=== PATIENT | female | born 1990 | race Caucasian/White ===

== ENCOUNTER 2022-04-22 09:35 | Inpatient (IN) | payer OTHER ==
[2022-04-22] MEDS: ELECTROLYTE-148 SOLN 1,000 ML IV SCH (10:00)
[2022-04-22 11:00] VITALS: BMI 32.4
[2022-04-22] MEDS ORDERED: ONDANSETRON 4 MG/2 ML VIAL IVPUSH PRN (11:59)
[2022-04-22] MEDS ORDERED: morphine SULFATE (PF) 1 MG/2 ML SYRINGE ONE (12:06)
[2022-04-22] MEDS ORDERED: FENTANYL CITRATE/PF 50 MCG/ML VIAL ONE (12:06)
[2022-04-22] MEDS ORDERED: PHENYLEPHRINE HCL 10 MG/1 ML SINGLE DOSE VIAL ONE (12:21)
[2022-04-22] MEDS ORDERED: ceFAZolin SODIUM 1 GM VIAL ONE (12:23)
[2022-04-22] MEDS ORDERED: ONDANSETRON 4 MG/2 ML VIAL ONE (12:31)
[2022-04-22] MEDS ORDERED: OXYTOCIN 10 UNITS/ML VIAL ONE (12:53)
[2022-04-22] MEDS ORDERED: CITRIC ACID/SODIUM CITRATE 30 ML UNIT-DOSE CUP PO ONE (13:28)
[2022-04-22] MEDS ORDERED: ACETAMINOPHEN 325 MG TABLET (FP) PO PRN (13:29)
[2022-04-22] MEDS ORDERED: METHYLERGONOVINE MALEATE 0.2 MG/1 ML AMP IM PRN (13:29)
[2022-04-22] MEDS ORDERED: SENNOSIDES/DOCUSATE COMBO (SENNA PLUS) TABLET (UD) PO PRN (13:30)
[2022-04-22] MEDS ORDERED: ACETAMINOPHEN 1000 MG/100 ML BAG IVPB ONE (14:26)
[2022-04-22] MEDS: OXYTOCIN 20 UNITS in 0.9% NS 20 UNIT/1,000 ML INFUS.BAG IV SCH (14:35)
[2022-04-22] MEDS: IBUPROFEN 800 MG/8 ML IJ IVPB PRN ×2 (14:35→22:25)
[2022-04-22] MEDS ORDERED: IBUPROFEN 800 MG/8 ML IJ IVPB ONE (14:40)
[2022-04-22] MEDS ORDERED: OXYTOCIN 20 UNITS in 0.9% NS 20 UNIT/1,000 ML INFUS.BAG IV ONE (14:41)
[2022-04-22] MEDS: FERROUS SO4 325 MG TABLET (FP) PO SCH (21:56)
[2022-04-22] MEDS: SIMETHICONE 80 MG TAB.CHEW (FP) PO PRN (22:26)
[2022-04-23] MEDS ORDERED: oxyCODONE HCL 5 MG TABLET PO PRN ×2 (01:30)
[2022-04-23] MEDS: OXYTOCIN 20 UNITS in 0.9% NS 20 UNIT/1,000 ML INFUS.BAG IV SCH (02:28)
[2022-04-23] MEDS: SIMETHICONE 80 MG TAB.CHEW (FP) PO PRN ×4 (02:28→20:21)
[2022-04-23] MEDS: IBUPROFEN 800 MG/8 ML IJ IVPB PRN (06:04)
[2022-04-23] MEDS: LEVOTHYROXINE NA 112 MCG TABLET (FP) PO SCH (06:06)
[2022-04-23 08:25] LABS: BASO % 0.2 % (0-2.0); EOS % 1.1 % (0-4.5); HEMATOCRIT 34.9 % (32.4-45.2); HEMOGLOBIN 11.1 GM/dL (10.7-15.3); LYMPH % 10.4 % (8-40); MCH 24.9 pg (25.7-33.7); MCHC 31.9 g/dl (32.0-36.0); MEAN CELL VOLUME 78.1 fl (80-96); MEAN PLT VOLUME 9.1 fl (7.5-11.1); MONO % 6.6 % (3.8-10.2); NEUT % 81.7 % (42.8-82.8); PLATELET COUNT 177 10^3/uL (134-434); RBC 4.47 M/mm3 (3.60-5.2); RDW 15.3 % (11.6-15.6); WHITE BLOOD COUNT 11.1 K/mm3 (4.0-10.0)
[2022-04-23] MEDS: FERROUS SO4 325 MG TABLET (FP) PO SCH ×2 (09:18→21:12)
[2022-04-23] MEDS: PRENATAL VITAMINS W/ FOLIC ACID TABLET (FP) PO SCH (09:18)
[2022-04-23] MEDS: ENOXAPARIN NA (PORCINE) 40 MG/0.4 ML DISP.SYRIN SQ SCH (09:18)
[2022-04-23] MEDS ORDERED: BISACODYL 10 MG SUPP.RECT RC PRN (13:30)
[2022-04-23] MEDS: IBUPROFEN 600 MG TABLET (FP) PO PRN ×2 (13:59→20:21)
[2022-04-24] MEDS: SIMETHICONE 80 MG TAB.CHEW (FP) PO PRN ×5 (02:01→21:30)
[2022-04-24] MEDS: IBUPROFEN 600 MG TABLET (FP) PO PRN ×4 (02:01→21:30)
[2022-04-24] MEDS: LEVOTHYROXINE NA 112 MCG TABLET (FP) PO SCH (06:03)
[2022-04-24] MEDS: ENOXAPARIN NA (PORCINE) 40 MG/0.4 ML DISP.SYRIN SQ SCH (09:14)
[2022-04-24] MEDS: FERROUS SO4 325 MG TABLET (FP) PO SCH ×2 (09:14→21:30)
[2022-04-24] MEDS: PRENATAL VITAMINS W/ FOLIC ACID TABLET (FP) PO SCH (09:14)
[2022-04-24 12:14] VITALS: RESP 18
[2022-04-24] MEDS: OXYTOCIN 20 UNITS in 0.9% NS 20 UNIT/1,000 ML INFUS.BAG IV SCH (20:37)
[2022-04-24] MEDS: ELECTROLYTE-148 SOLN 1,000 ML IV SCH ×2 (20:37→20:38)
[2022-04-25] MEDS: LEVOTHYROXINE NA 112 MCG TABLET (FP) PO SCH (06:16)
[2022-04-25] MEDS: SIMETHICONE 80 MG TAB.CHEW (FP) PO PRN (08:04)
[2022-04-25] MEDS: IBUPROFEN 600 MG TABLET (FP) PO PRN (08:04)
[2022-04-25 08:27] VITALS: BP 114/73; PULSE 89; TEMP 98.6
[2022-04-25 08:48] LABS: BASO % 0.4 % (0-2.0); EOS % 2.1 % (0-4.5); HEMATOCRIT 36.8 % (32.4-45.2); HEMOGLOBIN 11.7 GM/dL (10.7-15.3); LYMPH % 16.8 % (8-40); MCH 24.9 pg (25.7-33.7); MCHC 31.9 g/dl (32.0-36.0); MEAN CELL VOLUME 78.2 fl (80-96); MEAN PLT VOLUME 9.2 fl (7.5-11.1); MONO % 6.2 % (3.8-10.2); NEUT % 74.5 % (42.8-82.8); PLATELET COUNT 260 10^3/uL (134-434); RDW 15.7 % (11.6-15.6)
[2022-04-25] MEDS: PRENATAL VITAMINS W/ FOLIC ACID TABLET (FP) PO SCH (10:55)
[2022-04-25] MEDS: ENOXAPARIN NA (PORCINE) 40 MG/0.4 ML DISP.SYRIN SQ SCH (10:55)
[2022-04-25] MEDS: FERROUS SO4 325 MG TABLET (FP) PO SCH (10:55)
== END 2022-04-25 16:10 | disposition home or self-care (01) | DRG 540 ==
LOC: JLDR 09:35 → J3W 15:55
PROVIDERS: ADMIT Obstetrics & Gynecology; ATTEND Obstetrics & Gynecology
PROC: 10D00Z1 Extraction of Products of Conception, Low, Open Approach (ICD-10-PCS; principal; 2022-04-22)
DX: O82 Encounter for cesarean delivery without indication (principal); O66.0 Obstructed labor due to shoulder dystocia; Z3A.38 38 weeks gestation of pregnancy; Z37.0 Single live birth
CPT/HCPCS: 36415; 80053; 85025; 85027; 85461; 85610; 85730; 86780; 86850; 86900; 86901; 86999; 87389; 88307-TC; C9803-CS; U0003; U0005